=== PATIENT | female | born 1955 | race African-American/Black ===

== ENCOUNTER 2016-09-19 09:19 | Emergency (ER) | payer MEDICAID ==
[~2016-09-19] VITALS: Ht 162.6 cm; Wt 91.0 kg
[2016-09-19 09:37] VITALS: BP 177/89
[2016-09-19] MEDS ORDERED: HYDR12.529 PO (09:40)
[2016-09-19] MEDS ORDERED: LISI-186 PO (09:40)
== END 2016-09-19 12:01 | disposition home or self-care (01) ==
LOC: ER 10:47
DX: H00.014 Hordeolum externum left upper eyelid (principal); F17.200 Nicotine dependence, unspecified, uncomplicated; I10 Essential (primary) hypertension; Z98.890 Other specified postprocedural states
CPT/HCPCS: 70486; 99284